=== PATIENT | female | born 2000 | race Caucasian/White ===

== ENCOUNTER 2024-05-06 14:20 | Emergency (ER) | payer MEDICARE, MEDICAID, SELFPAY ==
[2024-05-06 14:22] VITALS: BP 119/86; PULSE 72; TEMP 36.7; O2SAT 100; BMI 37.2
[2024-05-06 15:08] LABS: Basophils Percent Auto 0.4 % (0.2-2.0); Eosinophils Absolute Auto 0.1 10^3/uL (0.0-0.7); Eosinophils Percent Auto 1.6 % (0.9-7.0); Hematocrit 41.4 % (36.0-48.0); Hemoglobin 13.7 g/dL (12.0-16.0); Immature Granulocytes Abs Auto 0.02 10^3/uL (0.00-0.03); Immature Granulocytes Pct Auto 0.3 % (0.0-0.5); Lymphocytes Absolute Auto 2.1 10^3/uL (1.2-3.8); Lymphocytes Percent Auto 31.3 % (20.5-60.0); Mean Corpuscular HGB Conc 33.1 g/dL (29.9-35.2); Mean Corpuscular Hemoglobin 28.7 pg (26.7-34.0); Mean Corpuscular Volume 86.6 fL (81.0-99.0); Mean Platelet Volume 11.8 fL (9.5-13.5); Monocytes Absolute Auto 0.4 10^3/uL (0.3-0.8); Monocytes Percent Auto 5.8 % (1.7-12.0); Neutrophils Absolute Auto 4.1 10^3/uL (1.4-6.5); Neutrophils Percent Auto 60.6 % (43.0-75.0); Platelet Count 274 10^3/uL (150-450); Red Blood Count 4.78 10^6/uL (4.20-5.40); Red Cell Distribution Width 14.9 % (11.0-15.0); White Blood Count 6.7 10^3/uL (4.0-11.0)
[2024-05-06 15:11] LABS: Alanine Aminotransferase 57 U/L (14-59); Albumin Globulin Ratio 0.9; Albumin Level 3.2 g/dL (3.4-5.0); Alkaline Phosphatase 81 U/L (46-116); Anion Gap 15.6; Aspartate Amino Transferase 55 U/L (15-37); BUN Creatinine Ratio 7.1; Bilirubin Total 0.5 mg/dL (0.2-1.0); Calcium 9.2 mg/dL (8.5-10.1); Carbon Dioxide 24.2 mmol/L (21.0-32.0); Chloride 105 mmol/L (98-107); Estimated GFR (African America >60 (>=60 mL/min/1.73m^2); Estimated GFR (Non-African Ame >60 (>=60 mL/min/1.73m^2); Globulin 3.7 g/dL; Glucose 78 mg/dL (74-106); Magnesium 1.9 mg/dL (1.8-2.4); Potassium 3.8 mmol/L (3.5-5.1); Sodium 141 mmol/L (136-145); Total Protein 6.9 g/dL (6.4-8.2)
--- NOTE | 2024-05-06 15:14 | ED.GENADUL1 ---
HPI HPI - General Adult General Chief complaint: Nausea/Vomiting/Diarrhea Stated complaint: NAUSEA/VOMITING, PRODUCTIVE COUGH Time Seen by Provider: 05/06/24 14:35 Source: patient Mode of arrival: ambulance History of Present Illness HPI narrative: Patient is a 23-year-old female who is presenting to the ER for 1 episode of vomiting last evening, and 5 episodes of vomiting today. Patient stated the emesis was brownish in color, not black. Patient has no black melena. Patient has no headache or neck pain. No chest pain or shortness of breath. Patient came in by EMS. Patient states that she often goes to [facility]. 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 Patient has no recent sick contacts. Patient was just in the ER at [facility] on May 02 which was last . Patient stated she had an x-ray, was diagnosed with pneumonia. Patient has mild cough, but she is more in the ER today for her nausea, vomiting, diarrhea. All systems are negative except as noted/marked. All systems reviewed and otherwise negative. Nurses note and vital signs reviewed and patient is not hypoxic. General: The patient appears well and in no apparent distress. Patient is resting comfortably on cart. Patient is not toxic, lethargic, or listless Skin: Warm, dry, no pallor noted. There is no rash noted. No petechiae, purpura. Head: Normocephalic, atraumatic Eye: Normal conjunctiva, no drainage, EOMI. PERRL Ears, Nose, Mouth, and Throat: oral mucosa is moist. Nares patent. Mouth without vesicles. Cardiovascular: Regular Rate and Rhythm, no murmur, gallop, rub Respiratory: Patient is in no distress, no accessory muscle use, lungs are clear to auscultation, no wheezing, rales or rhonchi Back: non-tender, no CVA tenderness bilaterally to percussion. No CT LS midline pain GI: Obese, soft, no flank pain bilateral, no peritoneal signs no tenderness to palpation, no masses appreciated. No rebound, guarding, or rigidity noted. No distention Musculoskeletal: Patient has full range of motion of all of the extremities, no motor, sensory, or focal neurological deficits Neurological: A&O x4, normal speech Psychiatric: Cooperative Related Data Previous Rx's ?Medication ?Instructions ?Recorded prochlorperazine maleate 10 mg 10 mg PO Q12H PRN nausea and 05/06/24 tablet (Compazine) vomiting, headache 7 days #7 tabs promethazine 25 mg rectal 25 mg TX Q6H PRN nausea and 05/06/24 suppository vomiting #6 ea Allergies Allergy/AdvReac Type Severity Reaction Status Date / Time No Known Drug Allergies Allergy Verified 05/06/24 14:25 Opioid HPI Opioid Management Most Recent Opioid Data: No Data to Display PFSH PFSH Social History Little interest or pleasure in doing things: not at all Feeling down, depressed, or hopeless: not at all Exam Constitutional Vital Signs, click to edit/add: Last Vital Signs Temp 98.1 F 05/06/24 14:22 Pulse 72 05/06/24 14:22 Resp 18 05/06/24 14:22 BP 102/70 05/06/24 15:22 Pulse Ox 95 05/06/24 15:22 O2 Del Method Room Air 05/06/24 14:22 Course Vital Signs Vital signs: Vital Signs Temperature 98.1 F 05/06/24 14:22 Pulse Rate 72 05/06/24 14:22 Respiratory Rate 18 05/06/24 14:22 Blood Pressure 119/86 05/06/24 14:22 Pulse Oximetry 100 05/06/24 14:22 Oxygen Delivery Method Room Air 05/06/24 14:22 Temperature 98.1 F 05/06/24 14:22 Pulse Rate 72 05/06/24 14:22 Respiratory Rate 18 05/06/24 14:22 Blood Pressure 102/70 05/06/24 15:22 Pulse Oximetry 95 05/06/24 15:22 Oxygen Delivery Method Room Air 05/06/24 14:22 Medical Decision Making MDM Narrative Medical decision making narrative: In reading patient's ER report from May 02, it was documented that the reason why she went to the ER on May 02 is because she was having worsening of her cough/pneumonia. Patient had been to the ER several times in the last 7 days prior to May 02 for cold and flulike symptoms. Patient had outpatient x-ray that diagnosed pneumonia. Patient was placed on steroids, patient's gastric bypass surgeon did not want patient on steroids. Patient was also placed on antibiotic, inhaler, Tessalon Perles. Patient x-ray on May 02 shows interval improvement compared to previous x-ray. It showed a lingular infiltrate. Patient's urine shows possible infection, but patient has many squamous epithelial cells, urine culture will be done. Patient feels much better after medication was given IV. Patient will be sent home with oral Compazine and also given Phenergan suppositories. Patient will follow-up with PCP,, patient was told that she can go back to the ER for acute concerns, otherwise patient is to follow-up with her PCP for ongoing chronic issues. No questions at discharge Lab Data Labs: Lab Results 05/06/24 05/06/24 Range/Units 14:27 15:22 WBC 6.7 (4.0-11.0) 10^3/uL RBC 4.78 (4.20-5.40) 10^6/uL Hgb 13.7 (12.0-16.0) g/dL Hct 41.4 (36.0-48.0) % MCV 86.6 (81.0-99.0) fL MCH 28.7 (26.7-34.0) pg MCHC 33.1 (29.9-35.2) g/dL RDW 14.9 (11.0-15.0) % Plt Count 274 (150-450) 10^3/uL MPV 11.8 (9.5-13.5) fL Neut % (Auto) 60.6 (43.0-75.0) % Lymph % (Auto) 31.3 (20.5-60.0) % Sumner % (Auto) 5.8 (1.7-12.0) % Eos % (Auto) 1.6 (0.9-7.0) % Baso % (Auto) 0.4 (0.2-2.0) % Neut # (Auto) 4.1 (1.4-6.5) 10^3/uL Lymph # (Auto) 2.1 (1.2-3.8) 10^3/uL Sumner # (Auto) 0.4 (0.3-0.8) 10^3/uL Eos # (Auto) 0.1 (0.0-0.7) 10^3/uL Baso # (Auto) 0.0 (0.0-0.1) 10^3/uL Abs Immat Gran (auto) 0.02 (0.00-0.03) 10^3/uL Imm/Tot Granulo (auto) 0.3 (0.0-0.5) % Sodium 141 (136-145) mmol/L Potassium 3.8 (3.5-5.1) mmol/L Chloride 105 (98-107) mmol/L Carbon Dioxide 24.2 (21.0-32.0) mmol/L Anion Gap 15.6 BUN 6.0 L (7.0-18.0) mg/dL Creatinine 0.85 (0.55-1.02) mg/dL Est GFR ( Amer) >60 (>=60 mL/min/1.73m^2) Est GFR (Non-Af Amer) >60 (>=60 mL/min/1.73m^2) BUN/Creatinine Ratio 7.1 Glucose 78 (74-106) mg/dL Calcium 9.2 (8.5-10.1) mg/dL Magnesium 1.9 (1.8-2.4) mg/dL Total Bilirubin 0.5 (0.2-1.0) mg/dL AST 55 H (15-37) U/L ALT 57 (14-59) U/L Alkaline Phosphatase 81 (46-116) U/L Total Protein 6.9 (6.4-8.2) g/dL Albumin 3.2 L (3.4-5.0) g/dL Globulin 3.7 g/dL Albumin/Globulin Ratio 0.9 Lipase 79.0 H (16.0-77.0) U/L Urine Color Yellow (YELLOW) Urine Clarity Clear (CLEAR) Urine pH 6.0 (5.0-9.0) Ur Specific Roe >=1.030 A (1.005-1.025) Urine Protein 30 A (NEG/TRACE) mg/dL Urine Glucose (UA) Negative (NEGATIVE) mg/dL Urine Ketones >=80 A (NEGATIVE) mg/dL Urine Occult Blood Trace-i (NEGATIVE) Urine Nitrite Negative (NEGATIVE) Urine Bilirubin Moderate A (NEGATIVE) Urine Urobilinogen 1.0 (0.2-1.0) EU/dL Ur Leukocyte Esterase Small A (NEGATIVE) Urine RBC 0-2 (0-2) #/HPF Urine WBC 10-20 A (NONE SEEN) #/HPF Ur Squamous Epith Cells Many A (NONE/RARE) #/LPF Ur Transition Epith Cell Rare A (NONE SEEN) #/LPF Urine Crystals None seen (None Seen) #/HPF Urine Bacteria Moderate A (NONE SEEN) #/HPF Urine Casts None seen (NONE SEEN) #/LPF Urine Mucus Large A (NONE SEEN) Ur Culture Indicated? Yes Discharge Plan Discharge Chief Complaint: Nausea/Vomiting/Diarrhea Clinical Impression: Nausea & vomiting, Diarrhea Patient Disposition: Home, Self-Care Time of Disposition Decision: 16:26 Condition: Fair Prescriptions / Home Meds: New promethazine 25 mg suppository 25 mg TX Q6H PRN (Reason: nausea and vomiting) Qty: 6 0RF prochlorperazine maleate [Compazine] 10 mg tablet 10 mg PO Q12H PRN (Reason: nausea and vomiting, headache) 7 Days Qty: 7 0RF Print Language: Japanese Instructions: Dehydration (ED), Acute Nausea and Vomiting (ED), Cold Symptoms (ED) Additional Instructions: You have a questionable urinary tract infection which could be there is secondary to diarrhea. A urine culture is being ordered to see if there infection versus contamination. Your initial sample given in the ER today is very contaminated with skin cells. Use Compazine if needed to help with nausea vomiting. Use Phenergan suppositories if needed as a second adjunct to using tablets to help with nausea vomiting if needed. Finish prescriptions, follow-up with your PCP Referrals: Physician,Non-Staff, MD [Primary Care Provider] - 1 week
[2024-05-06] MEDS: METOCLOPRAMIDE HCL 10 MG/2 ML VIAL IVP (15:17)
[2024-05-06 15:21] VITALS: O2SAT 99
[2024-05-06 15:22] VITALS: BP 102/70; O2SAT 95
[2024-05-06 15:44] LABS: Bilirubin Urine MODERATE (NEGATIVE); Blood Urine TRACE-I (NEGATIVE); Clarity Urine CLEAR (CLEAR); Color Urine YELLOW (YELLOW); Glucose Urine UA NEGATIVE (NEGATIVE); Ketones Urine >=80 mg/dL (NEGATIVE); Leukocyte Esterase Urine SMALL (NEGATIVE); Nitrite Urine NEGATIVE (NEGATIVE); Protein Urine 30 mg/dL (NEG/TRACE); Specific Gravity Urine >=1.030 (1.005-1.025)
[2024-05-06 16:00] LABS: Bacteria Urine MODERATE #/HPF (NONE SEEN); Mucus Urine LARGE (NONE SEEN); RBC Urine 0-2 #/HPF (0-2)
[2024-05-06 16:01] LABS: Cast Seen? NONE SEEN #/LPF (NONE SEEN); Crystals Seen? None Seen #/HPF (None Seen); Squamous Epithelial Cell Urine MANY #/LPF (NONE/RARE); Transitional Epi Cells Urine RARE #/LPF (NONE SEEN); Urine Culture Indicated YES
== END 2024-05-06 16:34 | disposition home or self-care (01) ==
PROVIDERS: Emergency Provider Emergency Medicine
DX: R19.7 Diarrhea, unspecified (principal); R11.2 Nausea with vomiting, unspecified; E66.9 Obesity, unspecified; Z68.37 Body mass index [BMI] 37.0-37.9, adult; R82.998 Other abnormal findings in urine
CPT/HCPCS: 36415; 80053; 81001; 83690; 83735; 85025; 87086; 87150; 87186; 96374; 99285; J2765